=== PATIENT | male | born 1960 | race Two or more races ===

== ENCOUNTER 2020-09-05 15:32 | Outpatient (CLI) | payer OTHER | END 2020-09-05 16:56 | disposition home or self-care (01) | LOC: OFIC 805 15:32 | PROVIDERS: ATTEND Otolaryngology Otology & Neurotology | DX: H65.23 Chronic serous otitis media, bilateral (principal); H90.0 Conductive hearing loss, bilateral; H92.03 Otalgia, bilateral ==

== ENCOUNTER 2020-09-23 06:00 | Day surgery (SDC) | payer OTHER ==
[~2020-09-23 06:00] MED LIST: ATACAND16 MG PO
== END 2020-09-23 11:40 | disposition home or self-care (01) ==
LOC: CIR.AMB 06:00
PROVIDERS: ATTEND Otolaryngology Otology & Neurotology
DX: H90.0 Conductive hearing loss, bilateral (principal); H65.23 Chronic serous otitis media, bilateral; Z20.822 Contact with and (suspected) exposure to COVID-19

== ENCOUNTER 2020-10-12 08:51 | Outpatient (CLI) | payer OTHER | END 2020-10-12 10:53 | disposition home or self-care (01) | LOC: OFIC 805 08:51 | PROVIDERS: ATTEND Otolaryngology Otology & Neurotology | DX: H65.23 Chronic serous otitis media, bilateral (principal); H90.0 Conductive hearing loss, bilateral; H92.03 Otalgia, bilateral ==

== ENCOUNTER 2024-12-04 05:15 | Day surgery (SDC) | payer OTHER ==
[2024-11-30 09:10] VITALS: BP 126/79
[2024-11-30 09:28] LABS: HEMATOCRIT 39.2 % (39.0-48.0); HEMOGLOBIN 13.3 g/dL (13-16.00); MEAN CORPUSCULAR HEMOGLOBIN 23.4 pg (27.00-32.0); PLATELET COUNT 244 K/uL (150-450); RED BLOOD COUNT 5.69 M/uL (4.00-6.00)
[2024-11-30 09:29] LABS: MEAN CELL VOLUME 68.9 fL (80.0-100.00); RED CELL DISTRIBUTION WIDTH 20.3 % (11.5-14.5)
[2024-11-30 09:44] LABS: URINE APPEARANCE Clear; URINE BILIRRUBIN Negative (NEGATIVE); URINE BLOOD Negative; URINE COLOR Yellow; URINE GLUCOSE Negative (NEGATIVE); URINE KETONE Negative (NEGATIVE); URINE LEUKOCYTE Negative; URINE NITRATE Negative; URINE PROTEIN Negative (NEGATIVE); URINE UROBILINOGEN 0.2 E.U./dl
[2024-11-30 09:53] LABS: INR 0.97; PARTIAL THROMBOPLASTIN TIME 26.5 SECONDS (22.0-34.0); PROTHROMBIN TIME 10.6 SECONDS (9.0-11.5); URINE BACTERIA 2.4 uL (0.0-1933); URINE CAST 0.14 uL (0.0-1.40); URINE EPITHELIAL CELLS 0.4 uL (0.0-38.8); URINE RBC 1.1 uL (0.0-20.8); URINE WBC 0.4 uL (0.0-23.2)
[2024-11-30 10:16] LABS: ALBUMIN 3.6 gm/dL (3.4-5.0); CALCIUM 9.4 mg/dL (8.5-10.1); CREATININE SERUM 0.81 mg/dL (0.70-1.30); GFR 95.63; PHOSPHOROUS 3.8 mg/dL (2.5-4.9); POTASSIUM 4.68 mEq/L (3.5-5.1)
[~2024-12-04] VITALS: Ht 188 cm; Wt 110.2 kg
[~2024-12-04 05:15] MED LIST changes: +CRESTOR40 MG; +METFORMIN HCL500 M3 PO; +NORVASC5 MG PO; +PEPCID AC20 MG; +TAMS0.4C PO
[2024-12-04] MEDS ORDERED: LIDOCAINE HCL 1%/EPINEPHRINE 20ML VIAL IJ ONE (08:45)
[2024-12-04] MEDS ORDERED: CEFAZOLIN SODIUM 1,000 MG VIAL IV SCH (08:45)
[2024-12-04] MEDS ORDERED: CIPROFLOXACIN HCL 0.175 MG/DR DROPS OTIC ONE (08:45)
[2024-12-04] MEDS ORDERED: CIPROFLOXACIN2.5 ML OTIC (08:57)
[2024-12-04] MEDS ORDERED: CEPHALEXIN500 M1 PO (08:57)
== END 2024-12-04 11:30 | disposition home or self-care (01) ==
LOC: CIR.AMB 05:15
PROVIDERS: ATTEND Otolaryngology Otology & Neurotology
DX: H72.01 Central perforation of tympanic membrane, right ear (principal); H74.21 Discontinuity and dislocation of right ear ossicles; H90.11 Conductive hearing loss, unilateral, right ear, with unrestricted hearing on the contralateral side